=== PATIENT | male | born 1965 | race Caucasian/White ===

== ENCOUNTER 2017-03-06 12:51 | Day surgery (SDC) | payer OTHER ==
--- NOTE | 2017-02-05 12:38 | PCM.ANEPRE ---
Anesthesia Pre-Op Review Reason for Review: UPCOMING MPS-NOT SCHEDULED YET--NEEDED BEFORE SURGERY? Anesthesia Recommendations: Delay until Additional Data Obtain Additional Comments 51 yo M with history of chest pain and risk factors for CAD. Seen in 2016 by cardiology, who ordered stress test which is not yet complete. Scheduled for hemorrhoidectomy. Discussed with Dr. Rubin, patient to complete cardiac workup prior to undergoing procedure. Terrence Mallory Chart Reviewed by: Duane Vitale MD Feb 05, 2017 12:38
[2017-03-06] VITALS (8 sets, daily range): BP systolic 119–137; BP diastolic 61–84; PULSE 62–78; RESP 11–22; O2SAT 93–99
[~2017-03-06] VITALS: Ht 185.4 cm; Wt 127.0 kg
[~2017-03-06 12:51] MED LIST: ALBU6.7H INH; ASPI-973 PO; BENZ-12 PO; GUAIATUSSIN AC PO; IBUP200C PO; Lactated Ringer's 1,000 ML IV SCH; MULT-1018 PO; ZIT250 PO
[2017-03-06] MEDS ORDERED: Lactated Ringer's 1,000 ML IV ONE (13:17)
[2017-03-06] MEDS ORDERED: Lactated Ringer's 1,000 ML IV SCH (13:33)
[2017-03-06] MEDS ORDERED: Lactated Ringer's 500 ML IV PRN (13:33)
--- NOTE | 2017-03-06 13:33 | PCM.HPANE ---
Patient Data Surgeon Admitting Provider: Attending Provider:Khalif Rubin MD Primary Care Physician:Miguel Gregory MD Other Provider:[facility] Reason for Visit Hemorrhoids Ht/WT & BMI Height (Feet): 6 Height (Inches): 1.00 Weight (Kilograms): 127.006 Body Mass Index 37.00 Allergies Coded Allergies: zolpidem (Verified Allergy, Unknown, UNKNOWN, 03/06/17) Uncoded Allergies: TARTRATE (Allergy, Mild, 03/06/17) Past Anesthesia History Anesthesia History: Denies:: Abnormal Airway, Anesthesia Reactions, Difficult Intubation, Fam Anesthesia Reaction, Fam Malignant Hypertherm, Malignant Hyperthermia Diabetes History Hx Diabetes?: No MRSA MRSA: No Medications Blood Thinner: Aspirin Home Meds Incl Beta Jefe: No Reported Medications Benzonatate (Tessalon Perle)100 Mg [id number] Mg PO TID PRN For Cough 02/05/17 Albuterol Sulfate (Proventil HFA Inhaler)6.7 Gm Hfa.aer.ad1 Puff INH Q4 PRN For Shortness of Breath #1 INHALER Ref 0 02/05/17 Ibuprofen 200 Mg [id number] Mg PO QID PRN For Pain Ref 0 02/05/17 [Guaiatussin Ac] No Conflict Check5-10 Ml PO Q4H PRN PRN 02/05/17 Multivitamin (Multi Vitamin Daily)1 Each Tablet1 Each PO DAILY 30 Days Ref 0 02/05/17 Azithromycin (Zithromax)250 Mg Uevmna028 Mg PO DAILY Ref 0 02/05/17 Aspirin 81 Mg Hkunun85 Mg PO DAILY Ref 0 02/05/17 History History of ENT Problems?: Yes HEENT History: Positive for:: Sinus Problem Denies:: Abnormal Airway Difficult Intubation Hearing Problem Hx of Heart Problems?: Yes Cardiovascular History: Positive for:: Chest Pain (hx of angina with current work up) Denies:: Atrial Fibrillation Heart Murmur Hypertension Valvular Heart Disease (echo 02/2016- ef 60-65%) Hx of Respiratory Problem?: Yes Respiratory History: Positive for:: Asthma Use of C-PAP Machine Use of Inhalers / NEBS Hx Neurologic Problems?: Yes Neurological History: Positive for:: Headaches Denies:: CVA Dementia Hx of GI Problems?: Yes Gastrointestinal History: Positive for:: Heartburn Rectal Bleeding (current admission problem) Denies:: Diverticulitis Other GI Pertinent History: Hx of Problems?: Yes Genitourinary History: Denies:: HX of Hemodialysis (HX CHRONIC RENAL INSUFFICIENCY) Male Hx: Denies:: Prostate Problems Scrotal Mass Testicular Surgery Skin History: Denies:: History Skin Disorders? Pressure Ulcers Hx Musculoskeletal Problems?: No Musculoskeletal History: Denies:: Joint Replacement Hx of Psycho/Social Problems?: No Psycho Social History: Denies:: Anxiety Hx Depression Hx Surgeries?: Yes (HEMORRHOID BANDING) Hx Any Other Health Problems?: Yes Other History: Denies:: Cancer Endocrine Disease Hospitalization Thyroid Disease History Blood Transfusions: Denies:: Blood Transfusions Hx Diabetes: No Hx Alcohol Use: YesAlcoholic Drinks Per Day: 2/DAY Smoking Status: Unknown if Ever Smoker Have You Smoked inLast 12 mo: No Stop/Bang Treated for Sleep Apnea?: Yes Do You Have a CPAP Machine?: Yes S-Snoring: Do You Snore Loudly: Yes T-Tired: feel tired, fatigued: Yes O-Obsered: Observed not breath: Yes P-Blood Pressure: treated: No B- Body Mass Index > 35 kg/m2: Yes A- Age over 50: Yes N- Neck Large Circumference: Yes G- Gender Male: Yes JUN Total Score: 7 JUN Risk Assessment: High Risk, =/>3 Yes Risk Assessment Category Category 1A: Patient has history of documented sleep apnea, and HAS NOT received any narcotic, sedative or anesthesia administration during this stay. Category 1B: Patient has history of documented sleep apnea, and HAS received any narcotic , sedative or anesthesia administration during this stay Category 2: Patient has SUSPECTED Obstructive Sleep Apnea, and HAS received any narcotic , sedative or anesthesia administration during this stay. Category 3: Patient has SUSPECTED Obstructive Sleep Apnea and HAS NOT received narcotic, sedative or anesthesia administration during this stay. Category 4: Outpatient in Procedural Areas with known sleep apnea or who screen positive for High Risk via the STOP/BANG questionnaire. Exam Exam Vital Signs Vital Signs Date Time Temp Pulse Resp B/P Pulse Ox O2 Delivery O2 Flow Rate FiO2 03/06/17 13:10 36.6 70 16 132/80 97 HEENT/AIRWAY: MP 2 Lungs: Normal Air Movement Heart: Regular Rate/Rhythm Meds/Labs/Diagnostics Admission Meds Current Medications Lactated Ringer's (Lr) 1,000 ml @ ud STK-MED ONCE IV Last administered on 03/06t 13:17; Start 03/06/17 at 13:17; Stop 03/06/17 at 13:18; Status DC Plan Impression Patient chart reviewed, patient interviewed and anesthestic plan with risks, benefits, and alternatives discussed, and informed consent obtained. NPO Status: Mihir marrufo ASA Physical Status: ASA2 Mod Systemic Disease Anesthetic Plan: GA Bene/Risks/Altern/Consents: Yes HP Complete Prior to Induction: Yes Josiah Simmons MD Mar 06, 2017 13:33
[2017-03-06] MEDS ORDERED: EPHEDrine Sulfate 50 mg/mL Inj IVPUSH PRN (13:35)
[2017-03-06] MEDS ORDERED: HYDROmorphone 1 mg/mL Inj IVPUSH PRN (13:35)
[2017-03-06] MEDS ORDERED: Dexamethasone 4 mg/mL Inj IVPUSH PRN (13:35)
[2017-03-06] MEDS ORDERED: fentaNYL-PF 50 mCg/mL 2 mL Inj IVPUSH PRN (13:35)
[2017-03-06] MEDS ORDERED: Ondansetron 2 mg/mL 2 mL Inj IVPUSH PRN (13:35)
[2017-03-06] MEDS ORDERED: MetoCLOpramide 5 mg/mL 2 mL Inj IVPUSH PRN (13:35)
[2017-03-06] MEDS ORDERED: Phenylephrine 10,000 mCg/mL Inj IVPUSH PRN (13:35)
[2017-03-06] MEDS ORDERED: Bupivacaine Liposome 1.3% 20 mL Inj ONE (13:58)
[2017-03-06] MEDS ORDERED: oxyCODONE-Acetamin 5-325 mg Tablet PO PRN (14:30)
--- NOTE | 2017-03-06 14:58 | PCM.ANEP1 ---
Post Anesthesia Phase 1 PACU Phase 1 Assessment Vital Signs Vital Signs Date Time Temp Pulse Resp B/P Pulse Ox O2 Delivery O2 Flow Rate FiO2 03/06/17 14:45 36.8 67 15 132/66 97 Room Air 03/06/17 14:40 68 22 137/61 93 Room Air 03/06/17 14:35 71 22 133/72 97 Room Air 03/06/17 14:30 72 11 135/66 99 Simple Mask 8 03/06/17 14:25 36.6 78 22 129/71 99 Simple Mask 8 03/06/17 13:10 36.6 70 16 132/80 97 Anesthetic Administered: GA Level of Alertness: Awake, talking Pain: No Nausea or Vomiting: No Oxygen Delivery: Room Air Lungs: Normal Air Movement Josiah Simmons MD Mar 06, 2017 14:58
--- NOTE | 2017-03-06 14:59 | PCM.ANEP2 ---
Post Anesthesia Evaluation ASA/CMS Post Anesthesia VS in Patient's Normal Range?: Yes Resp Stable; Airway Patent?: Yes CV Function & Hydration Stable: Yes Mental Status Recovered?: Yes Pain control Satisfactory?: Yes N/V Control Satisfactory?: Yes Josiah Simmons MD Mar 06, 2017 14:58
--- NOTE | 2017-03-07 01:12 | OP ---
[address] [address] OPERATIVE REPORT PATIENT: CHERYL BOONE : 1965 MR#: [id number] ADMIT: 03/06/2017 JOB ID: [id number] DATE OF SURGERY: 03/06/2017 ANESTHESIA: General. PREOPERATIVE DIAGNOSIS(ES): Symptomatic hemorrhoids. POSTOPERATIVE DIAGNOSIS(ES): Symptomatic hemorrhoids. OPERATIVE PROCEDURE: Three column hemorrhoidectomy (two column internal/external, one column internal). SURGEON: Khalif Rubin MD. FISHER LOBSTER: Darin Lu PA-C (the surgical first assistant was required for the safe and timely completion of the case). COMPLICATIONS: None. ESTIMATED BLOOD LOSS: Minimal. CONDITION: Satisfactory. SPECIMEN: 1. Right posterior hemorrhoid column (internal/external). 2. Left lateral hemorrhoid column (internal/external). 3. Right anterior internal hemorrhoid. INDICATIONS/SIGNIFICANT HISTORY: The patient is a 51-year-old man who is troubled with hemorrhoids for a number of years. He has recently been struggling with bleeding. I had previously banded some internal hemorrhoids but he represented with complaint of bleeding and his hemorrhoids were sensate; and therefore, not amenable to office based procedure. OPERATIVE TECHNIQUE: The patient was taken to the operating room and placed in supine position. General anesthesia was administered. He was then placed in lithotomy. The perineum was prepped and draped in standard surgical fashion. A procedure pause was performed. I began with a digital rectal examination which was unremarkable other than large hemorrhoids. The right posterior column was prolapsing. I then inserted the anal speculum and inspected circumferentially. He has a very large and inflamed right posterior column, a slightly smaller left lateral column, and then small right anterior column. I began with the right posterior column. Using the LigaSure device I removed both the internal and external components. The left lateral was removed in a similar fashion. The right anterior column I just took the internal component. Liposomal bupivacaine was then injected circumferentially. The anal canal was then packed with hemostatic foam. The case was then concluded. [facility]
--- NOTE | 2017-03-10 11:05 | PATH ---
SURGICAL PATHOLOGY Attending Physician:Khalif Rubin MD CASE STATUS: Signed Out PATIENT NAME: CHERYL BOONE PID: [id number] : 1965 DATE COLLECTED:03/06/2017 23:43 SPECIMEN: 1: Hemorrhoids 2: Hemorrhoids 3: Hemorrhoids CLINICAL HISTORY: HEMORRHOIDS 1). RIGHT POSTERIOR INTERNAL/EXTERNAL HEMORRHOID 2). LEFT LATERAL INTERNAL/EXTERNAL HEMORRHOID 3). RIGHT ANTERIOR INTERNAL/EXTENAL HEMORRHOID FINAL DIAGNOSIS: 1. 3. RIGHT POSTERIOR INTERNAL/EXTERNAL HEMORRHOID, LEFT LATERAL INTERNAL/EXTERNAL HEMORRHOID, RIGHT ANTERIOR INTERNAL/EXTERNAL HEMORRHOID, BIOPSIES: ANORECTAL MUCOSA WITH DILATED VESSELS CONSISTENT WITH HEMORRHOIDAL TISSUE. NO EVIDENCE OF DYSPLASIA OR MALIGNANCY. ICD10 CODE K64 GROSS DESCRIPTION: Received are three formalin-filled containers, each labeled with the patient' s name. 1. Received in formalin, labeled with the patient' s name and "right posterior internal and external hemorrhoid", is one fragment of pink-hilton, constricted tissue measuring 4.0 x 2.0 x 1.5 cm. The surgical margin is inked blue. Mortgage Loan Processing Clerk sections are submitted in cassettes 1A, 1B, and 1C. 2. Received in formalin, labeled with the patient' s name and "left lateral internal-external eze", is one fragment of pink-hilton, constricted tissue measuring 3.0 x 1.5 x 1.0 cm. Centrally located is an opening measuring 0.5 x 0.5 x 0.5 cm. The surgical margin is inked blue. Mortgage Loan Processing Clerk sections are submitted in cassette 2A. 3. Received in formalin, labeled with the patient' s name and "right anterior internal hemorrhoid", is one fragment of pink-hilton, spongy tissue measuring 1.5 x 1.0 x 0.7 cm. The surgical margin is inked blue. The fragment is divided and totally submitted in cassette 3A. ([id number]) MICRO DESCRIPTION: See diagnosis. ICD-9 CODES: CPT CODES: 1: 79394 2: 53969 3: 72044 Electronically Signed Out Carey Brown MD [facility] [place] [address] Technical component performed at [facility], [address], [place], [address]
== END 2017-03-06 23:59 | disposition home or self-care (01) ==
LOC: SAS 12:51
PROVIDERS: ATTEND General Practice
DX: K64.8 Other hemorrhoids (principal); K64.4 Residual hemorrhoidal skin tags; Z80.0 Family history of malignant neoplasm of digestive organs; G47.33 Obstructive sleep apnea (adult) (pediatric); N18.3 Chronic kidney disease, stage 3 (moderate); I20.0 Unstable angina; E88.81 Metabolic syndrome and other insulin resistance; F17.220 Nicotine dependence, chewing tobacco, uncomplicated; E66.9 Obesity, unspecified; Z68.38 Body mass index [BMI] 38.0-38.9, adult; Z79.82 Long term (current) use of aspirin; Z79.51 Long term (current) use of inhaled steroids